=== PATIENT | male | born 1960 | race Caucasian/White ===

== ENCOUNTER 2018-03-30 08:27 | Day surgery (SDC) | payer OTHER ==
[2018-03-30] MEDS ORDERED: LIDOCAINE 2% (SDV) 5 ML INJ (11:53)
[2018-03-30] MEDS ORDERED: PROPOFOL 60 ML (11:53)
== END 2018-03-30 13:44 | disposition home or self-care (01) ==
LOC: GIL 08:27
DX: R19.4 Change in bowel habit (principal); K29.30 Chronic superficial gastritis without bleeding; D12.4 Benign neoplasm of descending colon; K64.4 Residual hemorrhoidal skin tags; J45.909 Unspecified asthma, uncomplicated
CPT/HCPCS: 43239; 88305; 88312